=== PATIENT | female | born 1965 | race Caucasian/White ===

== ENCOUNTER 2018-09-16 13:13 | Emergency (ER) | payer BC ==
[~2018-09-16] VITALS: Ht 172.7 cm; Wt 80.0 kg
[2018-09-16] MEDS ORDERED: IMITREX25 MG PO (16:02)
[2018-09-16 16:20] VITALS: BP 132/80
== END 2018-09-16 16:20 | disposition home or self-care (01) | DRG 103 ==
LOC: ED 13:13
DX: G43.909 Migraine, unspecified, not intractable, without status migrainosus (principal); T39 Poisoning by, adverse effect of and underdosing of nonopioid analgesics, antipyretics and antirheumatics; K08.409 Partial loss of teeth, unspecified cause, unspecified class; Z91.128 Patient's intentional underdosing of medication regimen for other reason

== ENCOUNTER 2018-10-09 11:07 | Emergency (ER) | payer BC ==
[~2018-10-09] VITALS: Ht 172.7 cm; Wt 73.0 kg
[~2018-10-09 11:07] MED LIST: IMITREX25 MG PO
[2018-10-09 12:14] LABS: HEMATOCRIT 47.2 % (37.0-47.0); HEMOGLOBIN 15.6 g/dl (12.0-16.0); IMMATURE GRANULOCYTES 0.4 % (0.0-5.0); MEAN CELL VOLUME 96.5 fL CALC (80.0-100.0); MEAN CORPUSCULAR HGB 31.9 pG CALC (26.0-32.0); MEAN CORPUSCULAR HGB CONC 33.1 g/L CALC (32.0-36.0); NEUT# 12.56 thou/uL (2.00-7.15); RED BLOOD COUNT 4.89 mill/uL (4.20-5.60); RED CELL DISTRI WIDTH 12.6 % (11.5-15.5)
[2018-10-09 12:14] LABS: URINE BILIRUBIN - DIPSTICK NEGATIVE (NEGATIVE); URINE BLOOD DIPSTICK SMALL (NEGATIVE); URINE COLOR YELLOW; URINE GLUCOSE - DIPSTICK NEGATIVE (NEGATIVE); URINE KETONE NEGATIVE (NEGATIVE); URINE LEUK ESTERASE NEGATIVE (NEGATIVE); URINE NITRITE - DIPSTICK NEGATIVE (Negative); URINE PH 5.5 (4.5-8.0); URINE PROTEIN - DIPSTICK NEGATIVE (NEG-TRACE); URINE SPECIFIC GRAVITY 1.025; URINE UROBILINOGEN - DIPSTICK 0.2 E.U./dL (0.2)
[2018-10-09 12:22] LABS: URINE RBC 0-2 RBC/hpf (0-5)
[2018-10-09 12:23] LABS: URINE SQUAMOUS EPITHELIAL CELL FEW EPI/hpf (0-FEW); URINE WBC 0-2 WBC/hpf (0-5)
[2018-10-09 12:34] LABS: ALBUMIN 4.7 g/dL (3.2-5.0); ALKALINE PHOSPHATASE 66 u/l (38-126); AMYLASE 51 u/l (30-110); ANION GAP 14 (6-22 (CALC)); BILIRUBIN, TOTAL 0.6 mg/dL (0.0-1.4); BUN 20 mg/dL (7-17); BUN/CREATININE RATIO 25 (12-20 (CALC)); CARBON DIOXIDE 25 mmol/l (22-30); CHLORIDE 104 mmol/l (95-108); CREATININE 0.8 mg/dL (0.5-1.0); GFR > 60 ML/MIN (>=60 (CALC)); GFR FOR AFR.AMER. > 60 ML/MIN (>=60 (CALC)); LIPASE 109 u/l (23-300); POTASSIUM 4.5 mmol/l (3.5-5.1); SGOT/AST 17 u/l (14-36); SODIUM 138 mmol/l (137-146); TOTAL PROTEIN 7.7 g/dL (6.3-8.2)
[2018-10-09] MEDS ORDERED: PHENERGAN25 MG/TAB PO (15:18)
[2018-10-09] MEDS ORDERED: BENTYL10 MG PO (15:18)
[2018-10-09 16:07] VITALS: BP 112/74
== END 2018-10-09 16:17 | disposition home or self-care (01) | DRG 392 ==
LOC: ED 11:07
PROVIDERS: Family Medicine
DX: K52.9 Noninfective gastroenteritis and colitis, unspecified (principal)
CPT/HCPCS: S0164

== ENCOUNTER 2018-10-21 14:21 | Observation (INO) | payer BC ==
[~2018-10-21] VITALS: Ht 172.7 cm; Wt 70.0 kg
[~2018-10-21 14:21] MED LIST changes: +BENTYL10 MG PO; +PHENERGAN25 MG/TAB PO
--- NOTE | 2018-10-21 14:22 | NUR ---
TO ROOM 11 VIA W/C. ALERT. COOPERATIVE. C/O "THINK I AM HAVING A STROKE:
--- NOTE | 2018-10-21 14:30 | NUR ---
STATES ONLY MEDICATION SHE TAKES IS IBUPHROPHEN AND TRAMADOL NEEDED FOR NECK PAIN. REPORTS HAS OLDER NECK INJURY (FROM FALL) THAT SHE AHS THAT RX.
[2018-10-21 14:44] LABS: GFR > 60 ML/MIN (>=60 (CALC)); GFR FOR AFR.AMER. > 60 ML/MIN (>=60 (CALC))
[2018-10-21 14:51] LABS: HEMATOCRIT 41.5 % (37.0-47.0); IMMATURE GRANULOCYTES 0.3 % (0.0-5.0); MEAN CELL VOLUME 94.5 fL CALC (80.0-100.0); MEAN CORPUSCULAR HGB 31.9 pG CALC (26.0-32.0); MEAN CORPUSCULAR HGB CONC 33.7 g/L CALC (32.0-36.0); NEUT# 7.4 thou/uL (2.00-7.15); RED BLOOD COUNT 4.39 mill/uL (4.20-5.60); RED CELL DISTRI WIDTH 12.3 % (11.5-15.5)
[2018-10-21 15:01] LABS: INTERNATIONAL NORMALIZED RATIO 0.9 RATIO (0.7-1.3); PROTHROMBIN TIME 9.7 SECONDS (9.0-12.5)
[2018-10-21 15:04] LABS: ANION GAP 14 (6-22 (CALC)); BUN 14 mg/dL (7-17); BUN/CREATININE RATIO 18 (12-20 (CALC)); CARBON DIOXIDE 25 mmol/l (22-30); CHLORIDE 107 mmol/l (95-108); CREATININE 0.8 mg/dL (0.5-1.0); GFR > 60 ML/MIN (>=60 (CALC)); GFR FOR AFR.AMER. > 60 ML/MIN (>=60 (CALC)); POTASSIUM 4.2 mmol/l (3.5-5.1); SODIUM 141 mmol/l (137-146)
--- NOTE | 2018-10-21 15:15 | NUR ---
REQUESTED TO AMBULATED TO BATHROOM. ADVISED THAT BEDPAN MAY BE MORE APPROPRIATE DUE TO WEAKNESS. SHE AGREED TO BSC. VOIDED 900 ML CLEAR URINE. SPECIMEN OBTAINED. STANDBY ASSIST TO COMMODE. HELD LEGS UP FOR PAINTS TO BE REMOVED WITH EASE.
--- NOTE | 2018-10-21 15:20 | NUR ---
[facility] CALLED BACK AND REPORTED THEIR NEUROLOGIST REVIEWED THE FILMS AND FOUND NEGATIVE- NO SERVICES TO BE RENDERED. DR CHEN AWARE
--- NOTE | 2018-10-21 15:35 | NUR ---
WATER GIVEN PER REQUEST-TOLERATED WELL
--- NOTE | 2018-10-21 15:45 | NUR ---
TEARFUL AT TIME. COOPERATIVE. NO DISTRESS NOTED AT THIS TIME
--- NOTE | 2018-10-21 16:10 | NUR ---
MD SPOKE WITH PATIENT, SHE REFUSED ADMISSION. WHEN I SPOKE WITH HER, SHE AGREED TO STAY FOR OBSERVATION-AT LEAST OVERNIGHT. MD PLANS TO ADMIT FOR OBSERVATION
[2018-10-21 16:48] LABS: URINE BILIRUBIN - DIPSTICK NEGATIVE (NEGATIVE); URINE BLOOD DIPSTICK TRACE-INTACT (NEGATIVE); URINE COLOR YELLOW; URINE GLUCOSE - DIPSTICK NEGATIVE (NEGATIVE); URINE KETONE NEGATIVE (NEGATIVE); URINE LEUK ESTERASE NEGATIVE (Negative); URINE NITRITE - DIPSTICK NEGATIVE (Negative); URINE PROTEIN - DIPSTICK NEGATIVE (NEG-TRACE); URINE SPECIFIC GRAVITY <=1.005; URINE UROBILINOGEN - DIPSTICK 0.2 E.U./dL (0.2)
[2018-10-21 16:49] LABS: URINE CLARITY CLEAR
[2018-10-21 16:50] LABS: BARBITURATES NEGATIVE (NEGATIVE); COCAINE NEGATIVE (NEGATIVE); METHADONE NEGATIVE (NEGATIVE); OXCYCODONE NEGATIVE (NEGATIVE); TETRAHYDROCANNABIONOL NEGATIVE (NEGATIVE); TRICYLIC ANTIDEPRESSANTS NEGATIVE (NEGATIVE)
--- NOTE | 2018-10-21 16:56 | NUR ---
pain medication given as rx. bedresting. daughter at bedside.
--- NOTE | 2018-10-21 17:00 | NUR ---
AMBULATED TO BATHROOM WITH DAUGHTER WITH STEADY GAIT. NO DISTRESS NOTED
--- NOTE | 2018-10-21 17:05 | NUR ---
to ms via w/c
--- NOTE | 2018-10-21 17:15 | NUR ---
PT ARRIVED FROM ER VIA WC ACCOMPANIED BY STAFF. AT 1715. FAMILY IN THE ROOM/
--- NOTE | 2018-10-21 17:42 | NUR ---
ASSESSMENT IS COMPLETED: IV SITE IS FREE FROM REDNESS OR EDEMA. HR IS REG,PULSES ARE STRONG X4, ABD IS SOFT WITH ACTIVE BS, BREATH SOUNDS ARE CLEAR BILATERALLY. TELE MONITOR IN PLACE. CONTINUE TO OSBERVE AND MONITOR.
[2018-10-21 19:15] VITALS: BP 108/77
--- NOTE | 2018-10-21 20:21 | NUR ---
PT RESTING IN BED WITH EYES CLOSED. PT C/O HEADACHE AND BEING TIRED. ASSESMENT COMPLETED AT THIS TIME(SEE INTERVENTIONS) lungs clear, bowel sounds active, heart SOUNDA NORMAL, NO SWELLING AND EDEMA. IV FLUSHES WELL. NO OTHER NEEDS AT THIS TIME. CALL GROVES IN REACH. WILL CONTINUE TO MONITOR.
[2018-10-21 23:57] VITALS: BP 100/69
--- NOTE | 2018-10-22 | NUR ---
PT RESTING QUIETLY IN BED WITH EYES CLOSED. NO S/S OF DISTRESS. CALL GROVES IN REACH. WILL CONTINUE TO MONITOR.
--- NOTE | 2018-10-22 04:00 | NUR ---
PT C/O HEADACHE. MEDICATED PER ORDER
[2018-10-22 04:15] VITALS: BP 97/67
[2018-10-22 06:11] LABS: HEMATOCRIT 39.3 % (37.0-47.0); HEMOGLOBIN 13.5 g/dl (12.0-16.0); IMMATURE GRANULOCYTES 0.3 % (0.0-5.0); MEAN CELL VOLUME 95.4 fL CALC (80.0-100.0); MEAN CORPUSCULAR HGB 32.8 pG CALC (26.0-32.0); MEAN CORPUSCULAR HGB CONC 34.4 g/L CALC (32.0-36.0); NEUT# 3.87 thou/uL (2.00-7.15); RED BLOOD COUNT 4.12 mill/uL (4.20-5.60); RED CELL DISTRI WIDTH 12.2 % (11.5-15.5)
[2018-10-22 06:23] LABS: ALKALINE PHOSPHATASE 59 u/l (38-126); AMYLASE 39 u/l (30-110); ANION GAP 11 (6-22 (CALC)); BILIRUBIN, TOTAL 0.6 mg/dL (0.0-1.4); BUN 12 mg/dL (7-17); BUN/CREATININE RATIO 14 (12-20 (CALC)); CARBON DIOXIDE 26 mmol/l (22-30); CHLORIDE 106 mmol/l (95-108); CREATININE 0.9 mg/dL (0.5-1.0); GFR > 60 ML/MIN (>=60 (CALC)); GFR FOR AFR.AMER. > 60 ML/MIN (>=60 (CALC)); LIPASE 73 u/l (23-300); MAGNESIUM 1.9 mg/dL (1.6-2.3); POTASSIUM 3.7 mmol/l (3.5-5.1); SGOT/AST 16 u/l (14-36); SODIUM 139 mmol/l (137-146)
[2018-10-22 06:25] LABS: ALBUMIN 3.6 g/dL (3.2-5.0); TOTAL PROTEIN 6.1 g/dL (6.3-8.2)
[2018-10-22 07:40] VITALS: BP 107/72
--- NOTE | 2018-10-22 07:40 | NUR ---
ASSESSMENT IS COMPLETED; IV SITE IS FREE FROM REDNESS OR EDEMA. HR IS REG, PULSES ARE STRONG X4, ABD IS SOFT WITH ACTIVE BS. BREATH SOUNDS ARE CLEAR BILATERALLY. NO C/O SOB, TELE MONITOR IN PLACE. CONTINUE TOO OSBERVE AND MONITOR. CALL GROVES WITHIN REACH.
--- NOTE | 2018-10-22 12:00 | NUR ---
PT IS RELXING IN BED WITH NO DISTRESS NOTED. IV SITE IS FREE FROM REDNESS OR EDEMA.
[2018-10-22] MEDS ORDERED: TRAMADOL HCL50 MG PO (15:01)
--- NOTE | 2018-10-22 15:40 | NUR ---
IV SITE IS FREE FROM REDNESS OR EDEMA. DISCONTINUED CATHETER INTACT. NO DISTRESS NOTED. DISCHARGE INSTRUCTIONS GIVEN AND VERBALIZED UNDERSTANDING.
--- NOTE | 2018-10-22 15:50 | NUR ---
Discharge instructions given. Patient verbalizes understanding of same. Discharged in stable condition via Wheelchair to Home with family. All belongings sent with pt.
== END 2018-10-22 15:51 | disposition home or self-care (01) | DRG 552 ==
LOC: ED 14:21 → ED-I 14:55 → ED 14:55 → ED-I 16:00 → ED 16:16 → MS2 16:17
PROVIDERS: Family Medicine; ADMIT Internal Medicine Nephrology; ATTEND Internal Medicine Nephrology
DX: M50.122 Cervical disc disorder at C5-C6 level with radiculopathy (principal); M46.02 Spinal enthesopathy, cervical region; R20.8 Other disturbances of skin sensation; R20.2 Paresthesia of skin; G43.909 Migraine, unspecified, not intractable, without status migrainosus; W19.XXXD Unspecified fall, subsequent encounter
CPT/HCPCS: G0378; Q9967

== ENCOUNTER → 2018-11-13 | Outpatient (REF) ==
[~2018-11-13] MED LIST changes: +TRAMADOL HCL50 MG PO
== END | disposition home or self-care (01) | DRG 645 ==
LOC: LAB 07:13
PROVIDERS: ATTEND Physician Assistant
DX: D35.2 Benign neoplasm of pituitary gland (principal); R53.83 Other fatigue